=== PATIENT | female | born 1935 | race Caucasian/White ===

== ENCOUNTER 2017-02-08 11:10 | Inpatient (IN) ==
[2017-02-08] MEDS ORDERED: 0.9 % Sodium Chloride 1,000 ML IVC ONE (11:26)
--- NOTE | 2017-02-08 11:38 | Emergency Department Note ---
Disposition Clinical Impression: Altered mental status Disposition: Admitted As Inpatient Condition: Good Time of Disposition: 15:23 Altered Mental Status HPI - General Chief Complaint: ED General Medical Stated Complaint: non-verbal, laying in urine Time Seen by Provider: 02/08/17 11:42 Source: EMS Mode of arrival: EMS Limitations: altered mental status, age Nursing Notes Reviewed: Yes Vital Signs Reviewed: Yes - History of Present Illness HPI Narrative: Patient found by her caregiver today at home laying in a pool of urine it has been unclear how long she has been there when the last time she was seen patient is nonverbal and unable to provide us with any history MD complaint: altered mental status Onset (ago): unknown Pain Severity: unable Consistency of Symptoms: unknown Associated symptoms: Reports: other (unable to provide) - Related Data Home Medications Medication Instructions Recorded Confirmed Amlodipine [Norvasc] 5 mg PO DAILY 08/16/15 08/16/15 Celecoxib [Celebrex] 100 mg PO DAILY 08/16/15 08/16/15 Cholecalciferol (Vitamin D3) 1,000 unit PO BID 08/16/15 08/16/15 [Vitamin D] Cyclobenzaprine [Flexeril] 10 mg PO TID 08/16/15 08/16/15 Duloxetine [Cymbalta] 30 mg PO DAILY 08/16/15 08/16/15 Fluticasone Propionate Nasal 1 spray NS DAILY PRN 08/16/15 08/16/15 [Flonase] Lansoprazole [Prevacid] 30 mg PO DAILY 08/16/15 08/16/15 Levothyroxine [Synthroid] 112 mcg PO 0630 08/16/15 08/16/15 Lidocaine Patch [Lidoderm 5% patch] 1 each TP DAILY 08/16/15 08/16/15 Lisinopril [Zestril] 2.5 mg PO DAILY 08/16/15 08/16/15 Paroxetine [Paxil] 10 mg PO DAILY 08/16/15 08/16/15 Pregabalin [Lyrica] 150 mg PO BID 08/16/15 08/16/15 Tolterodine Tartrate [Detrol] 1 mg PO BID 08/16/15 08/16/15 Previous Rx's Medication Instructions Recorded Hydrocodone/Acetaminophen [[place] 1 tab PO Q6H #30 tablet 08/19/15 10-325 Tablet] Allergies Allergy/AdvReac Type Severity Reaction Status Date / Time Iodinated Contrast Media - Allergy See Verified 02/08/17 12:33 Oral and Comments Limitations: ROS unobtainable due to patients medical condition Past Medical History - Past Medical History Source: old records reviewed Medical history: Reports: hypertension Surgical history: Reports: hysterectomy, other Psychiatric history: Reports: no psych history - Social History Smoking Status: Current every day smoker Smokeless Tobacco Status: No Alcohol use: Reports: none Drug use: Reports: none Physical Exam - General Limitations: altered mental status General appearance: in no apparent distress, other (nonverbal) - Head Head exam: atraumatic, normocephalic, normal inspection - Eye Eye exam: Present: normal appearance, PERRL, EOMI - ENT ENT exam: normal exam, normal oropharynx, mucous membranes moist, normal external ear exam - Neck Neck exam: Present: normal inspection, full ROM, trachea midline - Chest Chest inspection: Present: normal inspection, symmetric chest wall rise, other ( occasional cough) - Respiratory Respiratory exam: Present: normal lung sounds bilaterally - Cardiovascular Cardiovascular exam: Present: regular rate, normal rhythm, normal heart sounds - Abdominal Exam Abdominal exam: Present: soft, Non-Tender, normal bowel sounds. Absent: mass, pulsatile mass - Extremities Exam Extremities exam: Present: normal inspection, full ROM, normal capillary refill. Absent: tenderness, joint swelling - Expanded Lower Extremity Exam Neurovascular/Tendon exam: Present: normal capillary refill, normal fine/light touch Gait: not tested/not observed - Back Exam Back exam: Present: normal inspection, full ROM. Absent: muscle spasm - Neurological Exam Neurological exam: Present: alert, CN II-XII intact - Psychiatric Psychiatric exam: Present: other (non verbal) - Skin Skin exam: Present: warm, dry, intact Course Course Narrative: Patient seen and examined multifocal workup done for etiology of altered mental status patient is been agitated but no nuchal meningeal signs noted no gross evidence of any focal weakness other than being nonverbal patient admitted Vital Signs Temperature 98.2 F 02/08/17 11:42 Pulse Rate 82 02/08/17 11:42 Respiratory Rate 18 02/08/17 11:42 Blood Pressure 176/126 02/08/17 11:42 O2 Sat by Pulse Oximetry 89 02/08/17 11:42 Temperature 98.2 F 02/08/17 14:29 Pulse Rate 88 02/08/17 14:29 Respiratory Rate 18 02/08/17 14:29 Blood Pressure 143/59 02/08/17 14:29 O2 Sat by Pulse Oximetry 98 02/08/17 14:29 Oxygen Delivery Oxygen Delivery Nasal Cannula Altered Mental Status - Differential Diagnosis Likely: dementia, hypoglycemia, hyponatremia, psychiatric disease - Medical Records Medical records reviewed: Yes I reviewed the patient's medical records. - Lab Data Lab results reviewed: Yes I reviewed the patient's lab results. Result diagrams: 02/08/17 11:40 02/08/17 11:40 Lab Results 02/08/17 02/08/17 02/08/17 Range/Units 11:40 11:40 11:40 WBC 24.9 H (4.3-11.1) K/mcL RBC 4.12 (3.82-4.97) M/mcL Hgb 12.6 (11.5-15.4) g/dL Hct 36.4 (35.3-44.9) % MCV 88.3 (83.0-100.0) fL MCH 30.6 (28.0-33.3) pg MCHC 34.6 (31.6-35.5) g/dL RDW 14.0 (11.5-14.5) % Plt Count 445 H (140-400) K/mcL MPV 11.0 (9.4-12.4) fL Immature Gran % 0.7 (0-4) % Seg Neutrophils % 77.6 % Lymphocytes % 16.5 % Monocytes % 4.6 % Eosinophils % 0.4 % Basophils % 0.2 % Neutrophils # 19.3 H (1.6-8.9) K/mcL Lymphocytes # 4.1 (0.6-4.6) K/mcL Monocytes # 1.2 (0.0-1.3) K/mcL Eosinophils # 0.1 (0.0-0.6) K/mcL Basophils # 0.1 (0.0-0.2) K/mcL PT (9.4-12.1) Seconds INR APTT 32.6 (26.0-36.0) Seconds VBG Lactic Acid (0.5-2.2) mmol/L Sodium 129 L (136-145) mEq/L Potassium 4.0 (3.5-4.5) mEq/L Chloride 91 L (98-109) mEq/L Carbon Dioxide 24 (19-29) mEq/L BUN 7 (7-20) mg/dL Creatinine 0.84 (0.57-1.11) mg/dL Est GFR ( Amer) > 60 (> 60) Est GFR (Non-Af Amer) > 60 (> 60) BUN/Creatinine Ratio 8 (6-26) Glucose 116 H (70-99) mg/dL Calculated Osmolality 267 L (280-300) Calcium 9.6 (8.6-10.8) mg/dL Total Bilirubin 0.7 (0.2-1.2) mg/dL AST 14 (5-34) Units/L ALT 9 (0-55) Units/L Alkaline Phosphatase 151 H (38-126) Units/L Ammonia (18-72) mcmol/L Troponin I (0-0.03) ng/mL B-Natriuretic Peptide (0-100) pg/mL Serum Total Protein 7.8 (6.0-8.3) g/dL Albumin 4.3 (3.5-5.0) g/dL Globulin 3.5 (2.4-3.5) g/dL Albumin/Globulin Ratio 1.2 (1.1-2.2) Urine Color (Yellow) Urine Clarity (Clear) Urine pH (5.0-8.0) pH Units Ur Specific [place] (1.010-1.025) Urine Protein (Neg-Trace) mg/dL Urine Glucose (UA) (Normal) mg/dL Urine Ketones (Negative) mg/dL Urine Blood (Negative) Urine Nitrite (Negative) Urine Bilirubin (Negative) Urine Urobilinogen (Normal) mg/dL Ur Leukocyte Esterase (Negative) Urine Microscopic RBC (0-3) per hpf Urine Microscopic WBC (0-3) per hpf Ur Squamous Epith Cells (None-Few) per lpf Ur Renal Epithelial Cell (None-Few) per hpf Amorphous Sediment (Few) Hyaline Casts (None-Few) per lpf Ur Culture Indicated? (NO) Salicylates (15-30) mg/dL Urine Opiates Screen (Nmlraq=887) ng/mL Ur Oxycodone Screen (Cutoff= 100) ng/mL Acetaminophen < 3.0 L (10-30) mcg/mL Ur Barbiturates Screen (Padxkq=584) ng/mL Ur Phencyclidine Scrn (Cutoff=25) ng/mL Ur Amphetamines Screen (Ztbqly=1196) ng/mL U Benzodiazepines Scrn (Djsrtn=949) ng/mL Urine Cocaine Screen (Cutoff= 300) ng/mL U Marijuana (THC) Screen (Cutoff = 50) ng/mL Ethyl Alcohol (0-10) mg/dL 02/08/17 02/08/17 02/08/17 Range/Units 11:40 11:40 11:40 WBC (4.3-11.1) K/mcL RBC (3.82-4.97) M/mcL Hgb (11.5-15.4) g/dL Hct (35.3-44.9) % MCV (83.0-100.0) fL MCH (28.0-33.3) pg MCHC (31.6-35.5) g/dL RDW (11.5-14.5) % Plt Count (140-400) K/mcL MPV (9.4-12.4) fL Immature Gran % (0-4) % Seg Neutrophils % % Lymphocytes % % Monocytes % % Eosinophils % % Basophils % % Neutrophils # (1.6-8.9) K/mcL Lymphocytes # (0.6-4.6) K/mcL Monocytes # (0.0-1.3) K/mcL Eosinophils # (0.0-0.6) K/mcL Basophils # (0.0-0.2) K/mcL PT 11.7 (9.4-12.1) Seconds INR 1.1 APTT (26.0-36.0) Seconds VBG Lactic Acid (0.5-2.2) mmol/L Sodium (136-145) mEq/L Potassium (3.5-4.5) mEq/L Chloride (98-109) mEq/L Carbon Dioxide (19-29) mEq/L BUN (7-20) mg/dL Creatinine (0.57-1.11) mg/dL Est GFR ( Amer) (> 60) Est GFR (Non-Af Amer) (> 60) BUN/Creatinine Ratio (6-26) Glucose (70-99) mg/dL Calculated Osmolality (280-300) Calcium (8.6-10.8) mg/dL Total Bilirubin (0.2-1.2) mg/dL AST (5-34) Units/L ALT (0-55) Units/L Alkaline Phosphatase (38-126) Units/L Ammonia 16 L (18-72) mcmol/L Troponin I (0-0.03) ng/mL B-Natriuretic Peptide 70 (0-100) pg/mL Serum Total Protein (6.0-8.3) g/dL Albumin (3.5-5.0) g/dL Globulin (2.4-3.5) g/dL Albumin/Globulin Ratio (1.1-2.2) Urine Color (Yellow) Urine Clarity (Clear) Urine pH (5.0-8.0) pH Units Ur Specific [place] (1.010-1.025) Urine Protein (Neg-Trace) mg/dL Urine Glucose (UA) (Normal) mg/dL Urine Ketones (Negative) mg/dL Urine Blood (Negative) Urine Nitrite (Negative) Urine Bilirubin (Negative) Urine Urobilinogen (Normal) mg/dL Ur Leukocyte Esterase (Negative) Urine Microscopic RBC (0-3) per hpf Urine Microscopic WBC (0-3) per hpf Ur Squamous Epith Cells (None-Few) per lpf Ur Renal Epithelial Cell (None-Few) per hpf Amorphous Sediment (Few) Hyaline Casts (None-Few) per lpf Ur Culture Indicated? (NO) Salicylates (15-30) mg/dL Urine Opiates Screen (Lrqeoa=998) ng/mL Ur Oxycodone Screen (Cutoff= 100) ng/mL Acetaminophen (10-30) mcg/mL Ur Barbiturates Screen (Uxuatv=150) ng/mL Ur Phencyclidine Scrn (Cutoff=25) ng/mL Ur Amphetamines Screen (Upivvr=8990) ng/mL U Benzodiazepines Scrn (Ijzvkg=743) ng/mL Urine Cocaine Screen (Cutoff= 300) ng/mL U Marijuana (THC) Screen (Cutoff = 50) ng/mL Ethyl Alcohol (0-10) mg/dL 02/08/17 02/08/17 02/08/17 Range/Units 11:40 11:40 11:40 WBC (4.3-11.1) K/mcL RBC (3.82-4.97) M/mcL Hgb (11.5-15.4) g/dL Hct (35.3-44.9) % MCV (83.0-100.0) fL MCH (28.0-33.3) pg MCHC (31.6-35.5) g/dL RDW (11.5-14.5) % Plt Count (140-400) K/mcL MPV (9.4-12.4) fL Immature Gran % (0-4) % Seg Neutrophils % % Lymphocytes % % Monocytes % % Eosinophils % % Basophils % % Neutrophils # (1.6-8.9) K/mcL Lymphocytes # (0.6-4.6) K/mcL Monocytes # (0.0-1.3) K/mcL Eosinophils # (0.0-0.6) K/mcL Basophils # (0.0-0.2) K/mcL PT (9.4-12.1) Seconds INR APTT (26.0-36.0) Seconds VBG Lactic Acid 2.0 (0.5-2.2) mmol/L Sodium (136-145) mEq/L Potassium (3.5-4.5) mEq/L Chloride (98-109) mEq/L Carbon Dioxide (19-29) mEq/L BUN (7-20) mg/dL Creatinine (0.57-1.11) mg/dL Est GFR ( Amer) (> 60) Est GFR (Non-Af Amer) (> 60) BUN/Creatinine Ratio (6-26) Glucose (70-99) mg/dL Calculated Osmolality (280-300) Calcium (8.6-10.8) mg/dL Total Bilirubin (0.2-1.2) mg/dL AST (5-34) Units/L ALT (0-55) Units/L Alkaline Phosphatase (38-126) Units/L Ammonia (18-72) mcmol/L Troponin I 0.01 (0-0.03) ng/mL B-Natriuretic Peptide (0-100) pg/mL Serum Total Protein (6.0-8.3) g/dL Albumin (3.5-5.0) g/dL Globulin (2.4-3.5) g/dL Albumin/Globulin Ratio (1.1-2.2) Urine Color (Yellow) Urine Clarity (Clear) Urine pH (5.0-8.0) pH Units Ur Specific [place] (1.010-1.025) Urine Protein (Neg-Trace) mg/dL Urine Glucose (UA) (Normal) mg/dL Urine Ketones (Negative) mg/dL Urine Blood (Negative) Urine Nitrite (Negative) Urine Bilirubin (Negative) Urine Urobilinogen (Normal) mg/dL Ur Leukocyte Esterase (Negative) Urine Microscopic RBC (0-3) per hpf Urine Microscopic WBC (0-3) per hpf Ur Squamous Epith Cells (None-Few) per lpf Ur Renal Epithelial Cell (None-Few) per hpf Amorphous Sediment (Few) Hyaline Casts (None-Few) per lpf Ur Culture Indicated? (NO) Salicylates < 5.0 L (15-30) mg/dL Urine Opiates Screen (Eomwhr=095) ng/mL Ur Oxycodone Screen (Cutoff= 100) ng/mL Acetaminophen (10-30) mcg/mL Ur Barbiturates Screen (Xkfybn=919) ng/mL Ur Phencyclidine Scrn (Cutoff=25) ng/mL Ur Amphetamines Screen (Bafipj=9399) ng/mL U Benzodiazepines Scrn (Riytvt=280) ng/mL Urine Cocaine Screen (Cutoff= 300) ng/mL U Marijuana (THC) Screen (Cutoff = 50) ng/mL Ethyl Alcohol < 10 (0-10) mg/dL 02/08/17 02/08/17 Range/Units 11:55 11:55 WBC (4.3-11.1) K/mcL RBC (3.82-4.97) M/mcL Hgb (11.5-15.4) g/dL Hct (35.3-44.9) % MCV (83.0-100.0) fL MCH (28.0-33.3) pg MCHC (31.6-35.5) g/dL RDW (11.5-14.5) % Plt Count (140-400) K/mcL MPV (9.4-12.4) fL Immature Gran % (0-4) % Seg Neutrophils % % Lymphocytes % % Monocytes % % Eosinophils % % Basophils % % Neutrophils # (1.6-8.9) K/mcL Lymphocytes # (0.6-4.6) K/mcL Monocytes # (0.0-1.3) K/mcL Eosinophils # (0.0-0.6) K/mcL Basophils # (0.0-0.2) K/mcL PT (9.4-12.1) Seconds INR APTT (26.0-36.0) Seconds VBG Lactic Acid (0.5-2.2) mmol/L Sodium (136-145) mEq/L Potassium (3.5-4.5) mEq/L Chloride (98-109) mEq/L Carbon Dioxide (19-29) mEq/L BUN (7-20) mg/dL Creatinine (0.57-1.11) mg/dL Est GFR ( Amer) (> 60) Est GFR (Non-Af Amer) (> 60) BUN/Creatinine Ratio (6-26) Glucose (70-99) mg/dL Calculated Osmolality (280-300) Calcium (8.6-10.8) mg/dL Total Bilirubin (0.2-1.2) mg/dL AST (5-34) Units/L ALT (0-55) Units/L Alkaline Phosphatase (38-126) Units/L Ammonia (18-72) mcmol/L Troponin I (0-0.03) ng/mL B-Natriuretic Peptide (0-100) pg/mL Serum Total Protein (6.0-8.3) g/dL Albumin (3.5-5.0) g/dL Globulin (2.4-3.5) g/dL Albumin/Globulin Ratio (1.1-2.2) Urine Color Yellow (Yellow) Urine Clarity Clear (Clear) Urine pH 8.5 H (5.0-8.0) pH Units Ur Specific [place] 1.020 (1.010-1.025) Urine Protein 30 H (Neg-Trace) mg/dL Urine Glucose (UA) Normal (Normal) mg/dL Urine Ketones Negative (Negative) mg/dL Urine Blood Trace-lysed H (Negative) Urine Nitrite Negative (Negative) Urine Bilirubin Negative (Negative) Urine Urobilinogen Normal (Normal) mg/dL Ur Leukocyte Esterase Negative (Negative) Urine Microscopic RBC 0-3 (0-3) per hpf Urine Microscopic WBC 0-3 (0-3) per hpf Ur Squamous Epith Cells Few (None-Few) per lpf Ur Renal Epithelial Cell Many H (None-Few) per hpf Amorphous Sediment Many H (Few) Hyaline Casts Few (None-Few) per lpf Ur Culture Indicated? NO (NO) Salicylates (15-30) mg/dL Urine Opiates Screen Positive H (Gywjyv=387) ng/mL Ur Oxycodone Screen Negative (Cutoff= 100) ng/mL Acetaminophen (10-30) mcg/mL Ur Barbiturates Screen Negative (Bkkqjp=150) ng/mL Ur Phencyclidine Scrn Negative (Cutoff=25) ng/mL Ur Amphetamines Screen Negative (Nfytzt=5231) ng/mL U Benzodiazepines Scrn Negative (Mtlyve=279) ng/mL Urine Cocaine Screen Negative (Cutoff= 300) ng/mL U Marijuana (THC) Screen Negative (Cutoff = 50) ng/mL Ethyl Alcohol (0-10) mg/dL - Radiology Data Radiology results reviewed: Yes I reviewed the patient's radiology results. ITS Impressions Chest X-Ray 02/08/17 11:24 IMPRESSION: No acute process. D/ / Mustapha Fabian MD / Mustapha Fabian MD Interpreting Provider: Mustapha Fabian MD Head CT 02/08/17 11:24 IMPRESSION: No acute intracranial abnormality. Stable generalized cerebral atrophy and periventricular white matter ischemic changes. D/ / Jose A Plasencia MD / Jose A Plasencia MD Interpreting Provider: Jose A Plasencia MD Checklist - LKW: 3-4.5 hrs Add. Contraindications Patient/family understanding: The patient/family members have been counseled and understood the risk, benefit , and alternatives of treatment. Critical Care Time Critical Care Time: Yes Total Critical Care Time: 35 Attestation: Critical care performed:35 minutes as a result patient unable to carry on conversation advices going on able to complain of any pain or discomfort there is no family with her determine when the last etiology of her known well was as result discussion with the family physician for admission transferred to [facility] for further evaluation due to the fact that cannot pinpoint the last known well time in her bed being saturated with urine is apparent that she is outside the stroke window Time is exclusive of separately billable procedures. Time includes: direct patient care, patient reassessment, coordination of patient care, interpretation of data (laboratory data, radiology data, and respiratory data), review of patient's medical records, medical consultation and documentation of patient care. Procedures included in critical care time: Procedures excluded from critical care time:
[2017-02-08 11:59] LABS: Basophils # 0.1 K/mcL (0.0-0.2); Basophils % 0.2 %; Eosinophils # 0.1 K/mcL (0.0-0.6); Eosinophils % 0.4 %; Hematocrit 36.4 % (35.3-44.9); Hemoglobin 12.6 g/dL (11.5-15.4); Immature Granulocytes % 0.7 % (0-4); Lymphocytes # 4.1 K/mcL (0.6-4.6); Lymphocytes % 16.5 %; Mean Corpuscular HGB Conc 34.6 g/dL (31.6-35.5); Mean Corpuscular Hemoglobin 30.6 pg (28.0-33.3); Mean Corpuscular Volume 88.3 fL (83.0-100.0); Monocytes % 4.6 %; Neutrophils # 19.3 K/mcL (1.6-8.9); Platelet Count 445 K/mcL (140-400); Red Blood Count 4.12 M/mcL (3.82-4.97); Segmented Neutrophils % 77.6 %
[2017-02-08 12:02] LABS: Bilirubin,Urine Negative (Negative); Blood,Urine Trace-lysed (Negative); Clarity,Urine Clear (Clear); Color,Urine Yellow (Yellow); Glucose,Urine (UA) Normal (Normal); Ketones,Urine Negative (Negative); Leukocyte Esterase,Urine Negative (Negative); Nitrite,Urine Negative (Negative); PH,Urine 8.5 pH Units (5.0-8.0); Protein,Urine 30 mg/dL (Neg-Trace); Urobilinogen,Urine Normal (Normal)
[2017-02-08 12:03] LABS: Monocytes # 1.2 K/mcL (0.0-1.3)
[2017-02-08 12:10] LABS: INR 1.1; Prothrombin Time 11.7 Seconds (9.4-12.1)
[2017-02-08 12:15] LABS: Alanine Aminotransferase 9 Units/L (0-55); Albumin 4.3 g/dL (3.5-5.0); Albumin/Globulin Ratio 1.2 (1.1-2.2); Alkaline Phosphatase 151 Units/L (38-126); Aspartate Amino Transferase 14 Units/L (5-34); BUN/Creatinine Ratio 8 (6-26); Bilirubin,Total 0.7 mg/dL (0.2-1.2); Blood Urea Nitrogen 7 mg/dL (7-20); Calcium 9.6 mg/dL (8.6-10.8); Carbon Dioxide 24 mEq/L (19-29); Chloride 91 mEq/L (98-109); Ethanol < 10 mg/dL (0-10); Globulin 3.5 g/dL (2.4-3.5); Glucose 116 mg/dL (70-99); Osmolality,Calculated 267 (280-300); Sodium 129 mEq/L (136-145); Total Protein 7.8 g/dL (6.0-8.3); eGFR For African Americans > 60 (> 60); eGFR For Non-African Americans > 60 (> 60)
[2017-02-08 12:16] LABS: Amorphous Sediment,Urine Many (Few); Hyaline Casts,Urine Few per lpf (None-Few); RBC,Urine 0-3 per hpf (0-3); Renal Epithelial Cells,Urine Many per hpf (None-Few); Squamous Epithelial Cell,Urine Few per lpf (None-Few); WBC,Urine 0-3 per hpf (0-3)
[2017-02-08 12:17] LABS: Acetaminophen < 3.0 mcg/mL (10-30); Salicylate < 5.0 mg/dL (15-30)
[2017-02-08 12:17] LABS: Amphetamine Screen,Urine Negative ng/mL (Cutoff=1000); Barbiturate Screen,Urine Negative ng/mL (Cutoff=200); Benzodiazepines Screen,Urine Negative ng/mL (Cutoff=200); Cannabinoid Screen,Urine Negative ng/mL (Cutoff = 50); Cocaine Screen,Urine Negative ng/mL (Cutoff= 300); Opiate Screen,Urine Positive ng/mL (Cutoff=300); Phencyclidine Screen,Urine Negative ng/mL (Cutoff=25)
[2017-02-08] MEDS ORDERED: CefTRIAXone 1,000 MG in D5% in Water (Mini-Bag+) 100 ML IVPB STA (14:58)
[2017-02-08] MEDS ORDERED: 0.9 % Sodium Chloride 1,000 ML IVC SCH (16:34)
[2017-02-08] MEDS ORDERED: Ondansetron 4 MG/2 ML VIAL IVP PRN (16:34)
[2017-02-08] MEDS ORDERED: Naloxone 0.4 MG/ML INJ IVP PRN (16:34)
--- NOTE | 2017-02-08 18:53 | Internal Med History&Physical ---
Date of Encounter: 02/08/17 Time of Encounter: 18:25 Assessment and Plan (1) Altered mental status Current visit: Yes Status: Acute Suspect left hemispheric infarct. CT of brain showed no IC bleed. Will order carotid Doppler studies and give oral aspirin if she is able to swallow safely. Qualifiers: Altered mental status type: unspecified Qualified Code(s): R41.82 - Altered mental status, unspecified (2) Hyponatremia Current visit: Yes Status: Acute She has been started on normal saline IV. We will monitor labs. (3) Neutrophilic leukocytosis Current visit: Yes Status: Acute No obvious etiology at this point. She was given Rocephin in emergency room. Recheck labs in a.m. (4) Hypothyroid Current visit: Yes Status: Acute TSH was elevated. Will increase Synthroid dose and she is able to swallow. Qualifiers: Hypothyroidism type: unspecified Qualified Code(s): E03.9 - Hypothyroidism , unspecified (5) Hypertension Current visit: Yes Status: Chronic We will allow permissive hypertension from auto dysregulation from possible CVA. Qualifiers: Hypertension type: essential hypertension Qualified Code(s): I10 - Essential (primary) hypertension Internal Medicine - H&P: HPI Chief complaint: Neurologic deficit, leukocytosis Admitted From: Home Plans for Post Hospital Care: Home History of present illness: Ms. Mariano is a 82 year old female who was brought to emergency room after she was found by caregiver at home lying in urine and nonverbal. It is uncertain how long she had been in that condition. She was brought to emergency room and evaluated. CT of the head showed no acute infarct. She had leukocytosis with WBC 24.9 with 77.6% segs. Sodium was low at 129. She was admitted to [facility] floor for ongoing care needs. She remains nonverbal despite having her eyes open. She was hospitalized last at [facility] August 2014 after a syncopal episode. No etiology for the syncope was discovered. Her neurologic history at that time was pertinent for denial of large distribution strokes or seizures. An MMSE exam showed scored 26/30. Past Med Surg Social Fam HX - Past Medical History Medical history: GERD, hypertension, thyroid disease Psychiatric history: no psych history - Past Surgical History Surgical History: hysterectomy, other - Social History Smoking Status: Current every day smoker Smokeless Tobacco Status: No Alcohol use: none Drug use: none Internal Medicine - H&P: Meds Amlodipine [Norvasc] 5 mg PO DAILY 08/16/15 [History] Celecoxib [Celebrex] 100 mg PO DAILY 08/16/15 [History] Cyclobenzaprine [Flexeril] 10 mg PO BID 08/16/15 [History] Duloxetine [Cymbalta] 30 mg PO DAILY 08/16/15 [History] Fluticasone Propionate Nasal [Flonase] 1 spray NS DAILY PRN 08/16/15 [History] Lansoprazole [Prevacid] 30 mg PO DAILY 08/16/15 [History] Levothyroxine [Synthroid] 112 mcg PO 0630 08/16/15 [History] Lidocaine Patch [Lidoderm 5% patch] 1 each TP BID 08/16/15 [History] Lisinopril [Zestril] 2.5 mg PO DAILY 08/16/15 [History] Paroxetine [Paxil] 10 mg PO DAILY 08/16/15 [History] Pregabalin [Lyrica] 150 mg PO BID 08/16/15 [History] Tolterodine Tartrate [Detrol] 1 mg PO BID 08/16/15 [History] Hydrocodone/Acetaminophen [[place] 10-325 Tablet] 1 tab PO Q6H #30 tablet [Rx] Baclofen [Lioresal] 10 mg PO BID 02/08/17 [History] Cholecalciferol (Vitamin D3) [Vitamin D] 5,000 unit PO BID 02/08/17 [History] Docusate [Colace] 100 mg PO DAILY PRN 02/08/17 [History] Esomeprazole Magnesium [Nexium] 40 mg PO QDPC 02/08/17 [History] Omeprazole 20 mg PO QDPC 02/08/17 [History] Solifenacin Succinate [Vesicare] 5 mg PO QDPC 02/08/17 [History] Temazepam [Restoril] 15 mg PO HS PRN 02/08/17 [History] Vitamin B Complex [Vitamin B Complex] 1 tab PO QDPC 02/08/17 [History] Allergies Iodinated Contrast Media - Oral and Allergy (Verified 02/08/17 12:33) See Comments Shock All Systems PM: A 10-system review of systems was performed and is negative for pertinent findings except as documented above in the HPI. Review of systems: Review of systems from the August 2014 H&P were reviewed and revised as below Gen.: Her weight has been stable at approximately 59 kg Cardiovascular: She has history of hypertension but no known NV heart failure angina DVT or pulmonary embolus. She thought an exercise stress test was performed approximately 2003. Respiratory: She smoked since age 7 never up to 1 pack per day. She did not wear home oxygen and she was uncertain if she had COPD on PFTs done approximately 10 years earlier. She has been diagnosed with ROBERT but could not tolerate CPAP/BiPAP mask GI: She had EGD and colonoscopy approximately July 2014 but was uncertain of the results. She had polypectomy and diverticular disease. She has history of hiatal hernia and GERD. She denied disorders of her liver gallbladder or exocrine pancreas : She has urinary incontinence but no disorder of kidney or bladder otherwise Neurologic: As per history of present illness Endocrine: she has hypothyroidism but denies diabetes or hyperlipidemia Hematology/oncology: She denies internal malignancies. She has had anemia in the past. Psychiatric: She has diagnosis of depression but no significant anxiety other mental health issues Musk skeletal: she has fibromyalgia and DJD and a diagnosis of SLE. - Constitutional Vitals: Temp Pulse Resp BP Pulse Ox 100.3 F H 85 20 147/78 96 02/08/17 15:55 02/08/17 15:55 02/08/17 15:55 02/08/17 15:55 02/08/17 15:55 Exam: Gen.: She is a well-developed lean female lying in bed who does not respond meaningfully to voice or light touch. She has her eyes open HEENT: Head is atraumatic and normocephalic. Eyes: EOMI. There is no scleral icterus. Mouth: Mucosa is not visualized because she will not open her mouth Neck: Supple and nontender. There is no thyromegaly or adenopathy noted Heart: Regular without murmurs gallops or ectopics Lungs: No wheezes or crackles are heard. Abdomen: Soft and nontender. No masses or guarding are noted. Extremities: There is no cyanosis edema or clubbing noted. Dorsalis pedis and posterior tibial pulses are trace palpable bilaterally. Neurologic: Mental status: Her eyes are open but she does not respond meaningfully to voice or light touch. Cranial nerves: She has leftward gaze deviation of her eyes. EOMI noted. 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 Motor: She has equal tone on passive range of motion of her arms and legs. She moves her right arm and leg more than the left. No further neurologic testing is attempted Skin: Warm and dry Internal Med - H&P Results - Labs CBC & Chem 7: 02/08/17 11:40 02/08/17 11:40
[2017-02-08] MEDS: 0.9 % Sodium Chloride 1,000 ML IVC SCH (19:33)
[2017-02-09] MEDS: *HR* LORazepam 2 MG/ML VIAL IVP PRN (00:16)
[2017-02-09 05:33] LABS: Basophils % 0.2 %; Eosinophils # 0.1 K/mcL (0.0-0.6); Eosinophils % 0.3 %; Hematocrit 32.6 % (35.3-44.9); Hemoglobin 11.4 g/dL (11.5-15.4); Immature Granulocytes % 0.6 % (0-4); Lymphocytes # 4.6 K/mcL (0.6-4.6); Mean Corpuscular Hemoglobin 30.5 pg (28.0-33.3); Mean Corpuscular Volume 87.2 fL (83.0-100.0); Mean Platelet Volume 11.2 fL (9.4-12.4); Monocytes # 1.3 K/mcL (0.0-1.3); Monocytes % 6.7 %; Neutrophils # 13.2 K/mcL (1.6-8.9); Platelet Count 388 K/mcL (140-400); Red Blood Count 3.74 M/mcL (3.82-4.97); Red Cell Distribution Width 13.7 % (11.5-14.5); Segmented Neutrophils % 68.2 %
[2017-02-09 05:57] LABS: BUN/Creatinine Ratio 9 (6-26); Blood Urea Nitrogen 7 mg/dL (7-20); Calcium 8.9 mg/dL (8.6-10.8); Carbon Dioxide 21 mEq/L (19-29); Chloride 92 mEq/L (98-109); Glucose 103 mg/dL (70-99); Osmolality,Calculated 260 (280-300); Potassium 3.5 mEq/L (3.5-4.5); Sodium 126 mEq/L (136-145); eGFR For African Americans > 60 (> 60); eGFR For Non-African Americans > 60 (> 60)
[2017-02-09] MEDS: *HR* Enoxaparin 40 MG/0.4 ML SYRINGE SQ SCH (06:19)
[2017-02-09] MEDS: Aspirin 325 MG TABLET PO SCH (08:49)
[2017-02-09] MEDS: 0.9 % Sodium Chloride 1,000 ML IVC SCH ×2 (13:03→21:47)
--- NOTE | 2017-02-09 17:59 | Internal Med Progress Note ---
Date of Encounter: 02/09/17 Time of Encounter: 17:50 - Assessment and plan (1) Altered mental status Current Visit: Yes Status: Acute Assessment and plan: February 09. Persistent unimproved neurologic deficit. We will order brain MRI. Continue aspirin. Await carotid Doppler. Qualifiers: Altered mental status type: unspecified Qualified Code(s): R41.82 - Altered mental status, unspecified (2) Hyponatremia Current Visit: Yes Status: Acute Assessment and plan: February 09. Sodium has decreased to 126. Continue normal saline IV. (3) Neutrophilic leukocytosis Current Visit: Yes Status: Acute Assessment and plan: February 09. Improved with WBC now 19.3 K and improved left shift. Continue Rocephin. (4) Hypothyroid Current Visit: Yes Status: Acute Assessment and plan: February 09. Continue Synthroid. Qualifiers: Hypothyroidism type: unspecified Qualified Code(s): E03.9 - Hypothyroidism , unspecified (5) Hypertension Current Visit: Yes Status: Chronic Assessment and plan: February 09. Blood pressures overall improved since yesterday but show significant fluctuation. Continue to withhold medication to allow for permissive hypertension from possible CVA with dysregulation. Qualifiers: Hypertension type: essential hypertension Qualified Code(s): I10 - Essential (primary) hypertension - Subjective Interval history: February 09. She is nonverbal - Constitutional Vitals: Temp Pulse Resp BP Pulse Ox 99.5 F 88 16 155/90 97 02/09/17 16:49 02/09/17 16:49 02/09/17 16:49 02/09/17 16:49 02/09/17 16:49 Exam: She is resting comfortably in bed. She moves her right arm much more than her left but appears sometimes to have nonpurposeful movements. She has equivocal Babinski on the left and no Babinski on the right. Heart is regular without murmurs gallops or ectopics. Lungs are clear. Arm tone is symmetric on passive range of motion. She has persistent leftward gaze deviation with right visual field deficits. I reviewed her medications and lab results. Internal Medicine: Result - Labs CBC & Chem 7: 02/09/17 04:20 02/09/17 04:20 Labs: Short CBC 02/09/17 Range/Units 04:20 WBC 19.3 H (4.3-11.1) K/mcL Hgb 11.4 L (11.5-15.4) g/dL Hct 32.6 L (35.3-44.9) % Plt Count 388 (140-400) K/mcL Neutrophils # 13.2 H (1.6-8.9) K/mcL BMP 02/09/17 04:20 Sodium 126 L Potassium 3.5 Chloride 92 L Carbon Dioxide 21 BUN 7 Creatinine 0.74 Glucose 103 H Calcium 8.9 - ABG Interpretation ABG results: PT/INR, D-dimer PT 11.7 Seconds (9.4-12.1) 02/08/17 11:40 - Impressions Impressions Hip X-Ray 02/08/17 19:37 IMPRESSION: Soft-tissue swelling with no definite fracture. D/ / Mario Malcolm MD / Mario Malcolm MD Interpreting Provider: Mario Malcolm MD Consult Discharge Plan - Plan Referrals: Ronnie Pond MD [Primary Care Provider] - 1 week
[2017-02-09] MEDS: CefTRIAXone 1,000 MG in D5% in Water (Mini-Bag+) 100 ML IVPB SCH (21:48)
[2017-02-09] MEDS: Lactobacillus 1 EACH CAP.SPRINK PO SCH (21:50)
[2017-02-10] MEDS: *HR* LORazepam 2 MG/ML VIAL IVP PRN ×2 (01:13→22:20)
[2017-02-10] MEDS: *HR* Enoxaparin 40 MG/0.4 ML SYRINGE SQ SCH ×2 (05:04→11:49)
[2017-02-10 07:26] LABS: Basophils # 0.1 K/mcL (0.0-0.2); Basophils % 0.3 %; Eosinophils # 0.1 K/mcL (0.0-0.6); Eosinophils % 0.6 %; Hematocrit 30.8 % (35.3-44.9); Hemoglobin 11.1 g/dL (11.5-15.4); Immature Granulocytes % 0.4 % (0-4); Lymphocytes # 4.7 K/mcL (0.6-4.6); Lymphocytes % 28.9 %; Mean Corpuscular Hemoglobin 30.7 pg (28.0-33.3); Mean Corpuscular Volume 85.1 fL (83.0-100.0); Mean Platelet Volume 10.9 fL (9.4-12.4); Monocytes # 1.3 K/mcL (0.0-1.3); Monocytes % 7.9 %; Platelet Count 326 K/mcL (140-400); Red Blood Count 3.62 M/mcL (3.82-4.97); Red Cell Distribution Width 13.4 % (11.5-14.5); Segmented Neutrophils % 61.9 %
[2017-02-10] MEDS: Lactobacillus 1 EACH CAP.SPRINK PO SCH ×2 (07:33→20:31)
[2017-02-10] MEDS: Aspirin 325 MG TABLET PO SCH (07:33)
[2017-02-10] MEDS: CefTRIAXone 1,000 MG in D5% in Water (Mini-Bag+) 100 ML IVPB SCH (07:33)
[2017-02-10 08:20] LABS: BUN/Creatinine Ratio 11 (6-26); Blood Urea Nitrogen 7 mg/dL (7-20); Calcium 8.1 mg/dL (8.6-10.8); Carbon Dioxide 21 mEq/L (19-29); Chloride 92 mEq/L (98-109); Glucose 99 mg/dL (70-99); Osmolality,Calculated 254 (280-300); Potassium 2.7 mEq/L (3.5-4.5); Sodium 123 mEq/L (136-145); eGFR For African Americans > 60 (> 60); eGFR For Non-African Americans > 60 (> 60)
--- NOTE | 2017-02-10 09:43 | Internal Med Progress Note ---
Date of Encounter: 02/10/17 Time of Encounter: 09:35 - Assessment and plan (1) Altered mental status Current Visit: Yes Status: Acute Assessment and plan: February 09. Persistent unimproved neurologic deficit. We will order brain MRI. Continue aspirin. Await carotid Doppler. February 10. MRI not yet scheduled. Carotid Doppler not yet done. Continue aspirin. Qualifiers: Altered mental status type: unspecified Qualified Code(s): R41.82 - Altered mental status, unspecified (2) Hyponatremia Current Visit: Yes Status: Acute Assessment and plan: February 09. Sodium has decreased to 126. Continue normal saline IV. February 10. Sodium has decreased further to 123. 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 (3) Neutrophilic leukocytosis Current Visit: Yes Status: Acute Assessment and plan: February 09. Improved with WBC now 19.3 K and improved left shift. Continue Rocephin. February 10. Improving. Continue Rocephin. (4) Hypothyroid Current Visit: Yes Status: Acute Assessment and plan: February 09. Continue Synthroid. Qualifiers: Hypothyroidism type: unspecified Qualified Code(s): E03.9 - Hypothyroidism , unspecified (5) Hypertension Current Visit: Yes Status: Chronic Assessment and plan: February 09. Blood pressures overall improved since yesterday but show significant fluctuation. Continue to withhold medication to allow for permissive hypertension from possible CVA with dysregulation. Qualifiers: Hypertension type: essential hypertension Qualified Code(s): I10 - Essential (primary) hypertension - Subjective Interval history: February 09. She is nonverbal February 10. She remains nonverbal. - Constitutional Vitals: Temp Pulse Resp BP Pulse Ox 97.9 F 85 18 149/79 98 02/10/17 00:00 02/10/17 00:00 02/10/17 00:00 02/10/17 00:00 02/10/17 00:00 Exam: She is lying quietly in bed. Her eyes do show conjugate movement to the right of midline today. Heart is regular with frequent ectopic beats. Lungs are clear anteriorly. Extremities show no edema. I reviewed her medications and lab results. Internal Medicine: Result - Labs CBC & Chem 7: 02/10/17 07:08 02/10/17 07:08 Labs: Short CBC 02/10/17 Range/Units 07:08 WBC 16.2 H (4.3-11.1) K/mcL Hgb 11.1 L (11.5-15.4) g/dL Hct 30.8 L (35.3-44.9) % Plt Count 326 (140-400) K/mcL Neutrophils # 10.0 H (1.6-8.9) K/mcL BMP 02/10/17 07:08 Sodium 123 L Potassium 2.7 L Chloride 92 L Carbon Dioxide 21 BUN 7 Creatinine 0.65 Glucose 99 Calcium 8.1 L - ABG Interpretation ABG results: PT/INR, D-dimer PT 11.7 Seconds (9.4-12.1) 02/08/17 11:40 Consult Discharge Plan - Plan Referrals: Ronnie Pond MD [Primary Care Provider] - 1 week
[2017-02-10] MEDS: 0.9 % Sodium Chloride 1,000 ML IVC SCH (11:47)
[2017-02-10] MEDS: 0.9 % Sodium Chloride w KCl 20 MEQ/1,000 ML MLS IVC SCH (11:58)
--- NOTE | 2017-02-10 17:38 | Electrocardiograph Report ---
[place] [id number] Test Date: 2017-02-08 Pat Name: Lucero Mariano Department: [id number] Room: [facility] Gender: F [employer] [place] [employer]: [id number] Requested By: Jesusita Pond Order Number: [id number] Reading MD: Elsie Cabrera Measurements Intervals [place] Rate: 84 P: 68 MD: 142 QRS: 16 QRSD: 94 T: -7 QT: 331 QTc: 371 Interpretive Statements SINUS RHYTHM NONSPECIFIC T-WAVE ABNORMALITY Electronically Signed On 02-10-2017 17:36:41 EDT by Elsie Cabrera
[2017-02-11] MEDS: 0.9 % Sodium Chloride w KCl 20 MEQ/1,000 ML MLS IVC SCH (01:11)
[2017-02-11 05:35] LABS: Basophils % 0.2 %; Eosinophils # 0.1 K/mcL (0.0-0.6); Eosinophils % 0.8 %; Hematocrit 30.8 % (35.3-44.9); Immature Granulocytes % 0.4 % (0-4); Lymphocytes # 4.1 K/mcL (0.6-4.6); Lymphocytes % 27.5 %; Mean Corpuscular HGB Conc 35.7 g/dL (31.6-35.5); Mean Corpuscular Hemoglobin 30.3 pg (28.0-33.3); Mean Corpuscular Volume 84.8 fL (83.0-100.0); Mean Platelet Volume 11.1 fL (9.4-12.4); Monocytes # 1.1 K/mcL (0.0-1.3); Monocytes % 7.3 %; Neutrophils # 9.6 K/mcL (1.6-8.9); Platelet Count 316 K/mcL (140-400); Red Blood Count 3.63 M/mcL (3.82-4.97); Red Cell Distribution Width 13.4 % (11.5-14.5); Segmented Neutrophils % 63.8 %
[2017-02-11 05:52] LABS: BUN/Creatinine Ratio 8 (6-26); Calcium 8.4 mg/dL (8.6-10.8); Carbon Dioxide 21 mEq/L (19-29); Chloride 95 mEq/L (98-109); Glucose 93 mg/dL (70-99); Magnesium 1.7 mg/dL (1.6-2.6); Osmolality,Calculated 261 (280-300); Potassium 2.9 mEq/L (3.5-4.5); Sodium 127 mEq/L (136-145); eGFR For African Americans > 60 (> 60); eGFR For Non-African Americans > 60 (> 60)
[2017-02-11 05:58] LABS: Blood Urea Nitrogen 5 mg/dL (7-20)
[2017-02-11] MEDS: *HR* Enoxaparin 40 MG/0.4 ML SYRINGE SQ SCH (06:13)
[2017-02-11] MEDS: Aspirin 81 MG TAB.CHEW PO SCH (09:45)
[2017-02-11] MEDS: Lactobacillus 1 EACH CAP.SPRINK PO SCH ×2 (09:48→19:47)
[2017-02-11] MEDS: CefTRIAXone 1,000 MG in D5% in Water (Mini-Bag+) 100 ML IVPB SCH (09:59)
--- NOTE | 2017-02-11 15:47 | Internal Med Progress Note ---
Date of Encounter: 02/11/17 Time of Encounter: 15:40 - Assessment and plan (1) Altered mental status Current Visit: Yes Status: Acute Assessment and plan: February 09. Persistent unimproved neurologic deficit. We will order brain MRI. Continue aspirin. Await carotid Doppler. February 10. MRI not yet scheduled. Carotid Doppler not yet done. Continue aspirin. February 11. MRI did not show evidence of acute infarct. 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 Carotid Doppler study not yet done. Continue aspirin. She appears to have some gradual improvement. Qualifiers: Altered mental status type: unspecified Qualified Code(s): R41.82 - Altered mental status, unspecified (2) Hyponatremia Current Visit: Yes Status: Acute Assessment and plan: February 09. Sodium has decreased to 126. Continue normal saline IV. February 10. Sodium has decreased further to 123. 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 February 11. Sodium improved to 127. Continue present management. Recheck labs in a.m. (3) Neutrophilic leukocytosis Current Visit: Yes Status: Acute Assessment and plan: February 09. Improved with WBC now 19.3 K and improved left shift. Continue Rocephin. February 10. Improving. Continue Rocephin. February 11. WBC improved to 15.0 K with 63.8% segs. Continue Rocephin. (4) Hypothyroid Current Visit: Yes Status: Acute Assessment and plan: February 09. Continue Synthroid. Qualifiers: Hypothyroidism type: unspecified Qualified Code(s): E03.9 - Hypothyroidism , unspecified (5) Hypertension Current Visit: Yes Status: Chronic Assessment and plan: February 09. Blood pressures overall improved since yesterday but show significant fluctuation. Continue to withhold medication to allow for permissive hypertension from possible CVA with dysregulation. February 11. Will restart lisinopril at low dose. Qualifiers: Hypertension type: essential hypertension Qualified Code(s): I10 - Essential (primary) hypertension - Subjective Interval history: February 09. She is nonverbal February 10. She remains nonverbal. February 11. She remains nonverbal. - Constitutional Vitals: Temp Pulse Resp BP Pulse Ox 99.3 F 79 16 188/83 99 02/11/17 15:03 02/11/17 15:03 02/11/17 15:03 02/11/17 15:03 02/11/17 15:03 Exam: She is resting comfortably in bed and seems to recognize I am examining her. She does not follow commands or attempt to speak. She does show full EOMI. She is not show evidence of hemianopsia at the present time. I reviewed her MRI and swallowing therapy evaluations. I reviewed her labs, medications and vital signs. Internal Medicine: Result - Labs CBC & Chem 7: 02/11/17 04:45 02/11/17 04:45 Labs: Short CBC 02/11/17 Range/Units 04:45 WBC 15.0 H (4.3-11.1) K/mcL Hgb 11.0 L (11.5-15.4) g/dL Hct 30.8 L (35.3-44.9) % Plt Count 316 (140-400) K/mcL Neutrophils # 9.6 H (1.6-8.9) K/mcL BMP 02/11/17 04:45 Sodium 127 L Potassium 2.9 L Chloride 95 L Carbon Dioxide 21 BUN 5 L Creatinine 0.63 Glucose 93 Calcium 8.4 L - ABG Interpretation ABG results: PT/INR, D-dimer PT 11.7 Seconds (9.4-12.1) 02/08/17 11:40 - Impressions Impressions Videofluoroscopic Swallow 02/11/17 00:00 IMPRESSION: Transient penetration with purees. Aspiration with nectar thick liquid. Please see separate speech pathology report for full discussion of findings and recommendations. D/ / Ryne Grant MD / Ryne Grant MD Interpreting Provider: Ryne Grant MD Brain MRI 02/11/17 12:30 IMPRESSION: 1. No acute intracranial abnormality. No acute infarct. 2. Extensive global parenchymal volume loss with chronic microvascular ischemic change. 3. 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 4. Right mastoid effusion. D/ / Toni Massey MD / Toni Massey MD Interpreting Provider: Toni Massey MD Consult Discharge Plan - Plan Referrals: Ronnie Pond MD [Primary Care Provider] - 1 week
[2017-02-11] MEDS: Potassium Chloride Elixir 20 MEQ/15 ML UDC PO SCH (19:15)
[2017-02-12] MEDS: 0.9 % Sodium Chloride w KCl 20 MEQ/1,000 ML MLS IVC SCH ×3 (00:03→15:13)
[2017-02-12] MEDS: *HR* LORazepam 2 MG/ML VIAL IVP PRN (00:48)
[2017-02-12 05:05] LABS: Basophils % 0.3 %; Eosinophils # 0.2 K/mcL (0.0-0.6); Hematocrit 32.1 % (35.3-44.9); Hemoglobin 11.6 g/dL (11.5-15.4); Immature Granulocytes % 0.3 % (0-4); Lymphocytes # 3.9 K/mcL (0.6-4.6); Mean Corpuscular HGB Conc 36.1 g/dL (31.6-35.5); Mean Corpuscular Hemoglobin 30.9 pg (28.0-33.3); Mean Corpuscular Volume 85.4 fL (83.0-100.0); Monocytes % 5.4 %; Neutrophils # 10.7 K/mcL (1.6-8.9); Platelet Count 348 K/mcL (140-400); Red Blood Count 3.76 M/mcL (3.82-4.97); Red Cell Distribution Width 13.8 % (11.5-14.5)
[2017-02-12 05:06] LABS: Basophils # 0.1 K/mcL (0.0-0.2); Monocytes # 0.9 K/mcL (0.0-1.3)
[2017-02-12 05:26] LABS: BUN/Creatinine Ratio 8 (6-26); Calcium 8.8 mg/dL (8.6-10.8); Carbon Dioxide 21 mEq/L (19-29); Chloride 96 mEq/L (98-109); Glucose 86 mg/dL (70-99); Osmolality,Calculated 265 (280-300); Potassium 3.2 mEq/L (3.5-4.5); Sodium 129 mEq/L (136-145); eGFR For African Americans > 60 (> 60); eGFR For Non-African Americans > 60 (> 60)
[2017-02-12 05:32] LABS: Blood Urea Nitrogen 5 mg/dL (7-20)
[2017-02-12] MEDS: *HR* Enoxaparin 40 MG/0.4 ML SYRINGE SQ SCH (05:35)
[2017-02-12] MEDS: Lactobacillus 1 EACH CAP.SPRINK PO SCH (08:57)
[2017-02-12] MEDS: Potassium Chloride Elixir 20 MEQ/15 ML UDC PO SCH (08:57)
[2017-02-12] MEDS: CefTRIAXone 1,000 MG in D5% in Water (Mini-Bag+) 100 ML IVPB SCH (08:58)
[2017-02-12] MEDS: Aspirin 81 MG TAB.CHEW PO SCH (09:00)
[2017-02-12 10:07] VITALS: BP 153/101
--- NOTE | 2017-02-12 10:36 | Discharge Summary ---
Date of Encounter: 02/12/17 Time of Encounter: 10:00 - Discharge Diagnosis (1) Altered mental status Priority: Primary Status: Acute Qualifiers: Altered mental status type: unspecified Qualified Code(s): R41.82 - Altered mental status, unspecified (2) Hyponatremia Priority: Secondary Status: Acute (3) Neutrophilic leukocytosis Priority: Secondary Status: Acute (4) Hypothyroid Priority: Secondary Status: Acute Qualifiers: Hypothyroidism type: unspecified Qualified Code(s): E03.9 - Hypothyroidism , unspecified (5) Hypertension Priority: Secondary Status: Chronic Qualifiers: Hypertension type: essential hypertension Qualified Code(s): I10 - Essential (primary) hypertension - Discharge Medications Prescriptions: Cefuroxime PO [Ceftin] 500 mg PO Q12HR 3 Days Doxycycline 100 mg PO BID 3 Days Home Medications: Amlodipine [Norvasc] 5 mg PO DAILY 08/16/15 [History] Lidocaine Patch [Lidoderm 5% patch] 1 each TP BID 08/16/15 [History] Docusate [Colace] 100 mg PO DAILY PRN 02/08/17 [History] Aspirin 81 mg PO DAILY tab.chew 02/12/17 [Rx] Cefuroxime PO [Ceftin] 500 mg PO Q12HR 3 Days 02/12/17 [Rx] Doxycycline 100 mg PO BID 3 Days 02/12/17 [Rx] Enoxaparin [Lovenox] 40 mg SQ 0600 syringe 02/12/17 [Rx] Lactobacillus [Culturelle] 1 each PO BID 3 Days 02/12/17 [Rx] Levothyroxine [Synthroid] 150 mcg PO 0630 tablet 02/12/17 [Rx] Lisinopril [Zestril] 10 mg PO DAILY tablet 02/12/17 [Rx] Potassium Chloride 10 meq PO BIDWM tab.er.prt 02/12/17 [Rx] Allergies/Adverse Reactions: Allergies Iodinated Contrast Media - Oral and Allergy (Verified 02/08/17 12:33) See Comments Shock Procedures/tests Complete & Pending: Procedures Performed prior 72 hours Category Date Time Status MR head/brain wo con [MR] Routine MRI 02/11/17 12:30 Completed Date of admission: 02/09/17 18:06 Primary care physician: Ronnie Pond MD - Patient Status Disposition: Transfer Hospital Swing Bed Condition: Good Functional capacity at discharge: uses cane/walker Overall status at discharge: patient is progressing back to baseline - Discharge Instructions - Diet and Activity Activity: as per physical therapy Diet: other (Pureed diet with honey thick liquids. Advance as tolerated.) Hospital course: Ms. Mariano is a 82 year old female who was brought to emergency room after she was found by caregiver at home lying in urine and nonverbal. It is uncertain how long she had been in that condition. She was brought to emergency room and evaluated. CT of the head showed no acute infarct. She had leukocytosis with WBC 24.9 with 77.6% segs. Sodium was low at 129. She was admitted to [facility] for ongoing care needs. Initial orders were written by the emergency room physician. I saw her on February 08 and performed a history and physical. She did not have any significant improvement the first 48 hours of hospital stay. An MRI of the brain was ordered and showed no acute infarct present. There was an old pontine infarct seen. She was started empirically on aspirin 81 mg daily. Carotid Doppler studies were ordered but were not performed by the time of discharge into swing bed. The etiology of her presenting mental status change was not obvious but I suspect it was cerebral hypoperfusion with superimposed infection. Examination on February 12 showed significant improvement and she was able to speak and interact appropriately. I felt she would benefit from ongoing rehabilitation therapy in swing bed. She was given IV normal saline on admission. Her sodium level declined to 123 on February 10 but had risen to 129 on the day of discharge into swing bed. She was given supplemental potassium for hypokalemia. She was started on empiric antibiotics for eukocytosis with neutrophilia. WBC had improved to 15.7 on the day of discharge to swing bed with 68% segs present. The etiology of her leukocytosis was not determined with certainty. She will be discharged today to swing bed and will continue with therapy interventions, IV fluids, and oral antibiotics with probiotics. - Time Spent with Patient Total time spent providing and/or coordinating discharge services: - Constitutional Vitals: Temp Pulse Resp BP Pulse Ox 98.1 F 81 16 153/101 95 02/12/17 10:01 02/12/17 10:02/12/17 10:01 02/12/17 10:02/12/17 10:01
== END 2017-02-12 16:33 | disposition other institution (70) | DRG 948 ==
LOC: EMEROOPIK 11:10 → INPPIK 11:10
PROVIDERS: ADMIT Internal Medicine; ATTEND Internal Medicine

== ENCOUNTER 2017-02-12 11:01 | Inpatient (IN) ==
[2017-02-12] MEDS ORDERED: Cefuroxime PO 250 MG TABLET PO SCH (18:00)
[2017-02-12] MEDS: 0.9 % Sodium Chloride w KCl 20 MEQ/1,000 ML MLS IVC SCH (18:11)
[2017-02-12] MEDS: Doxycycline 100 MG CAPSULE PO SCH (22:00)
[2017-02-12] MEDS: Lactobacillus 1 EACH CAP.SPRINK PO SCH (22:00)
[2017-02-13] MEDS: *HR* LORazepam 1 MG TABLET PO PRN ×2 (02:40→14:40)
[2017-02-13] MEDS: 0.9 % Sodium Chloride w KCl 20 MEQ/1,000 ML MLS IVC SCH (05:38)
[2017-02-13 05:43] LABS: eGFR For African Americans > 60 (> 60); eGFR For Non-African Americans > 60 (> 60)
[2017-02-13] MEDS ORDERED: Cefuroxime PO 250 MG TABLET PO SCH (06:00)
[2017-02-13 07:54] LABS: Basophils # 0.1 K/mcL (0.0-0.2); Basophils % 0.3 %; Eosinophils # 0.2 K/mcL (0.0-0.6); Eosinophils % 0.8 %; Hematocrit 35.6 % (35.3-44.9); Hemoglobin 12.5 g/dL (11.5-15.4); Immature Granulocytes % 0.6 % (0-4); Lymphocytes # 4.2 K/mcL (0.6-4.6); Mean Corpuscular HGB Conc 35.1 g/dL (31.6-35.5); Mean Corpuscular Hemoglobin 30.9 pg (28.0-33.3); Mean Corpuscular Volume 87.9 fL (83.0-100.0); Monocytes # 1.2 K/mcL (0.0-1.3); Monocytes % 6.2 %; Neutrophils # 13.3 K/mcL (1.6-8.9); Platelet Count 356 K/mcL (140-400); Red Blood Count 4.05 M/mcL (3.82-4.97); Red Cell Distribution Width 13.9 % (11.5-14.5); Segmented Neutrophils % 70.1 %
[2017-02-13 07:56] LABS: INR 1.1; Prothrombin Time 12.4 Seconds (9.4-12.1)
[2017-02-13 08:07] LABS: Activated Partial Thrombo Time 30.4 Seconds (26.0-36.0)
[2017-02-13] MEDS: amLODIPine 5 MG TABLET PO SCH (08:53)
[2017-02-13] MEDS: Lactobacillus 1 EACH CAP.SPRINK PO SCH (08:53)
[2017-02-13] MEDS: Aspirin 81 MG TAB.CHEW PO SCH (08:53)
[2017-02-13] MEDS: Doxycycline 100 MG CAPSULE PO SCH (08:54)
--- NOTE | 2017-02-13 10:31 | Internal Med Progress Note ---
Date of Encounter: 02/13/17 Time of Encounter: 10:20 - Assessment and plan (1) Altered mental status Current Visit: No Status: Acute Assessment and plan: February 13. Improved. Continue present management. Qualifiers: Altered mental status type: unspecified Qualified Code(s): R41.82 - Altered mental status, unspecified (2) Hyponatremia Current Visit: No Status: Acute Assessment and plan: February 13. We will recheck labs in a.m. (3) Neutrophilic leukocytosis Current Visit: No Status: Acute Assessment and plan: February 13. We will discontinue antibiotics. Etiology of the leukocytosis is not known. (4) Hypothyroid Current Visit: No Status: Acute Assessment and plan: February 13. TSH was 32.916 on 02/08/2017. Continue Synthroid. Qualifiers: Hypothyroidism type: unspecified Qualified Code(s): E03.9 - Hypothyroidism , unspecified (5) Hypertension Current Visit: No Status: Chronic Assessment and plan: February 13. Blood pressure suboptimally controlled. Will increase lisinopril. Qualifiers: Hypertension type: essential hypertension Qualified Code(s): I10 - Essential (primary) hypertension - Subjective Interval history: February 13. She was hospitalized in acute care February 08- February 12 after presenting with altered mental status. She remained nonverbal until February 11 when she had marked improvement and was able to communicate appropriately. MRI brain showed no infarct. She had leukocytosis of uncertain etiology. She was treated with antibiotics which were continued into swing bed orders. She has no new complaints today. - Constitutional Vitals: Temp Pulse Resp BP Pulse Ox 98.1 F 76 16 163/80 98 02/13/17 07:01 02/13/17 07:01 02/13/17 07:01 02/13/17 07:01 02/13/17 07:01 Exam: Her affect is cheerful. She answers questions appropriately. Extremities show no edema. I reviewed her medications and lab results. Internal Medicine: Result - Labs CBC & Chem 7: 02/13/17 07:41 02/13/17 05:08 Labs: Short CBC 02/13/17 Range/Units 07:41 WBC 18.9 H (4.3-11.1) K/mcL Hgb 12.5 (11.5-15.4) g/dL Hct 35.6 (35.3-44.9) % Plt Count 356 (140-400) K/mcL Neutrophils # 13.3 H (1.6-8.9) K/mcL BMP 02/13/17 05:08 Creatinine 0.57 - ABG Interpretation ABG results: PT/INR, D-dimer PT 12.4 Seconds (9.4-12.1) H 02/13/17 07:45 Consult Discharge Plan - Plan Referrals: Ronnie Pond MD [Primary Care Provider] - 1 week
[2017-02-13] MEDS: Nicotine 21 MG PATCH.TD24 TD SCH (14:40)
[2017-02-14 07:10] LABS: Basophils # 0.1 K/mcL (0.0-0.2); Basophils % 0.4 %; Eosinophils # 0.2 K/mcL (0.0-0.6); Eosinophils % 1.4 %; Hematocrit 35.6 % (35.3-44.9); Hemoglobin 11.8 g/dL (11.5-15.4); Immature Granulocytes % 0.4 % (0-4); Lymphocytes # 3.6 K/mcL (0.6-4.6); Lymphocytes % 26.6 %; Mean Corpuscular HGB Conc 33.1 g/dL (31.6-35.5); Mean Corpuscular Hemoglobin 30.4 pg (28.0-33.3); Mean Corpuscular Volume 91.8 fL (83.0-100.0); Mean Platelet Volume 11.9 fL (9.4-12.4); Monocytes # 0.8 K/mcL (0.0-1.3); Monocytes % 5.9 %; Platelet Count 172 K/mcL (140-400); Red Blood Count 3.88 M/mcL (3.82-4.97); Red Cell Distribution Width 14.3 % (11.5-14.5); Segmented Neutrophils % 65.3 %
[2017-02-14 07:58] LABS: BUN/Creatinine Ratio 11 (6-26); Blood Urea Nitrogen 7 mg/dL (7-20); Calcium 9.4 mg/dL (8.6-10.8); Carbon Dioxide 15 mEq/L (19-29); Chloride 96 mEq/L (98-109); Glucose 94 mg/dL (70-99); Osmolality,Calculated 262 (280-300); Potassium 3.8 mEq/L (3.5-4.5); Sodium 127 mEq/L (136-145); eGFR For African Americans > 60 (> 60); eGFR For Non-African Americans > 60 (> 60)
[2017-02-14] MEDS: amLODIPine 5 MG TABLET PO SCH (08:36)
[2017-02-14] MEDS: Aspirin 81 MG TAB.CHEW PO SCH (08:37)
[2017-02-14] MEDS: Nicotine 21 MG PATCH.TD24 TD SCH (15:12)
--- NOTE | 2017-02-14 17:29 | Internal Med Progress Note ---
Date of Encounter: 02/14/17 Time of Encounter: 17:15 - Assessment and plan (1) Altered mental status Current Visit: No Status: Acute Assessment and plan: February 13. Improved. Continue present management. February 14. She remains alert but confused. Continue present regimen Qualifiers: Altered mental status type: unspecified Qualified Code(s): R41.82 - Altered mental status, unspecified (2) Hyponatremia Current Visit: No Status: Acute Assessment and plan: February 13. We will recheck labs in a.m. February 14. Sodium stable at 127. Will not workup or treatment further at this time. (3) Neutrophilic leukocytosis Current Visit: No Status: Acute Assessment and plan: February 13. We will discontinue antibiotics. Etiology of the leukocytosis is not known. February 14. WBC significantly improved to 13.7 with resolution of left shift persisting. We will not workup or treat further. (4) Hypothyroid Current Visit: No Status: Acute Assessment and plan: February 13. TSH was 32.916 on 02/08/2017. Continue Synthroid. Qualifiers: Hypothyroidism type: unspecified Qualified Code(s): E03.9 - Hypothyroidism , unspecified (5) Hypertension Current Visit: No Status: Chronic Assessment and plan: February 13. Blood pressure suboptimally controlled. Will increase lisinopril. February 14. Continue present dose lisinopril and Norvasc Qualifiers: Hypertension type: essential hypertension Qualified Code(s): I10 - Essential (primary) hypertension - Subjective Interval history: February 13. She was hospitalized in acute care February 08- February 12 after presenting with altered mental status. She remained nonverbal until February 11 when she had marked improvement and was able to communicate appropriately. MRI brain showed no infarct. She had leukocytosis of uncertain etiology. She was treated with antibiotics which were continued into swing bed orders. She has no new complaints today. February 14. She has no new complaints. - Constitutional Vitals: Temp Pulse Resp BP Pulse Ox 97.8 F 81 16 158/83 98 02/14/17 07:00 02/14/17 15:36 02/14/17 15:36 02/14/17 15:36 02/14/17 15:36 Exam: She is resting comfortably in bed. She has confusion at times and thinks her mother is still alive and is 81 years old although she knows she herself is 82 years old. Speech is tangential at times. 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 Rapid finger movements are slow bilaterally and symmetric. I reviewed her medications and lab results. I discussed her case with her daughter. Internal Medicine: Result - Labs CBC & Chem 7: 02/14/17 05:20 02/14/17 05:20 Labs: Short CBC 02/14/17 Range/Units 05:20 WBC 13.7 H (4.3-11.1) K/mcL Hgb 11.8 (11.5-15.4) g/dL Hct 35.6 (35.3-44.9) % Plt Count 172 D (140-400) K/mcL Neutrophils # 9.0 H (1.6-8.9) K/mcL BMP 02/14/17 05:20 Sodium 127 L Potassium 3.8 Chloride 96 L Carbon Dioxide 15 L BUN 7 Creatinine 0.61 Glucose 94 Calcium 9.4 - ABG Interpretation ABG results: PT/INR, D-dimer PT 12.4 Seconds (9.4-12.1) H 02/13/17 07:45 Consult Discharge Plan - Plan Referrals: Ronnie Pond MD [Primary Care Provider] - 1 week
[2017-02-15] MEDS: Aspirin 81 MG TAB.CHEW PO SCH (09:52)
[2017-02-15] MEDS: Nicotine 21 MG PATCH.TD24 TD SCH (09:52)
[2017-02-15] MEDS: Lisinopril 20 MG TABLET PO SCH (09:52)
[2017-02-15] MEDS: amLODIPine 5 MG TABLET PO SCH (09:52)
[2017-02-16] MEDS: Lisinopril 20 MG TABLET PO SCH (09:00)
[2017-02-16] MEDS: Nicotine 21 MG PATCH.TD24 TD SCH (09:00)
[2017-02-16] MEDS: Aspirin 81 MG TAB.CHEW PO SCH (09:00)
[2017-02-16] MEDS: amLODIPine 5 MG TABLET PO SCH (09:00)
[2017-02-17] MEDS: Aspirin 81 MG TAB.CHEW PO SCH (08:47)
[2017-02-17] MEDS: Lisinopril 20 MG TABLET PO SCH (08:47)
[2017-02-17] MEDS: amLODIPine 5 MG TABLET PO SCH (08:47)
[2017-02-17] MEDS: Nicotine 21 MG PATCH.TD24 TD SCH (08:47)
[2017-02-17] MEDS: *HR* LORazepam 1 MG TABLET PO PRN (20:20)
[2017-02-18] MEDS: Nicotine 21 MG PATCH.TD24 TD SCH (11:01)
[2017-02-18] MEDS: amLODIPine 5 MG TABLET PO SCH (11:01)
[2017-02-18] MEDS: Lisinopril 20 MG TABLET PO SCH (11:01)
[2017-02-18] MEDS: Aspirin 81 MG TAB.CHEW PO SCH (11:01)
--- NOTE | 2017-02-18 16:43 | Internal Med Progress Note ---
Date of Encounter: 02/18/17 Time of Encounter: 15:55 - Assessment and plan (1) Altered mental status Current Visit: No Status: Acute Assessment and plan: February 13. Improved. Continue present management. February 14. She remains alert but confused. Continue present regimen February 18. Mental status likely near baseline now. Qualifiers: Altered mental status type: unspecified Qualified Code(s): R41.82 - Altered mental status, unspecified (2) Hyponatremia Current Visit: No Status: Acute Assessment and plan: February 13. We will recheck labs in a.m. February 14. Sodium stable at 127. Will not workup or treatment further at this time. February 18. Recheck labs in a.m. (3) Neutrophilic leukocytosis Current Visit: No Status: Acute Assessment and plan: February 13. We will discontinue antibiotics. Etiology of the leukocytosis is not known. February 14. WBC significantly improved to 13.7 with resolution of left shift persisting. We will not workup or treat further. February 18. Recheck labs in a.m. (4) Hypothyroid Current Visit: No Status: Acute Assessment and plan: February 13. TSH was 32.916 on 02/08/2017. Continue Synthroid. Qualifiers: Hypothyroidism type: unspecified Qualified Code(s): E03.9 - Hypothyroidism , unspecified (5) Hypertension Current Visit: No Status: Chronic Assessment and plan: February 13. Blood pressure suboptimally controlled. Will increase lisinopril. February 14. Continue present dose lisinopril and Norvasc February 18. Continue lisinopril and Norvasc. Qualifiers: Hypertension type: essential hypertension Qualified Code(s): I10 - Essential (primary) hypertension - Subjective Interval history: February 13. She was hospitalized in acute care February 08- February 12 after presenting with altered mental status. She remained nonverbal until February 11 when she had marked improvement and was able to communicate appropriately. MRI brain showed no infarct. She had leukocytosis of uncertain etiology. She was treated with antibiotics which were continued into swing bed orders. She has no new complaints today. February 14. She has no new complaints. February 18. She has no new complaints. - Constitutional Vitals: Temp Pulse Resp BP Pulse Ox 98.5 F 78 16 158/81 98 02/18/17 07:01 02/18/17 13:18 02/18/17 13:18 02/18/17 13:18 02/18/17 13:18 Exam: She is sitting in a chair at bedside and appears comfortable. Her affect is bright and cheerful. She knows her age. I reviewed her medications and lab results. Internal Medicine: Result - Labs CBC & Chem 7: 02/14/17 05:20 02/14/17 05:20 - ABG Interpretation ABG results: PT/INR, D-dimer PT 12.4 Seconds (9.4-12.1) H 02/13/17 07:45 - VTE Documentation of Mechanical Device: Graduated compression elastic hosiery Consult Discharge Plan - Plan Referrals: Ronnie Pond MD [Primary Care Provider] - 1 week
[2017-02-18] MEDS ORDERED: Mag Hydrox/Al Hydrox/Simeth 30 ML UDC PO PRN (21:17)
[2017-02-19] MEDS: *HR* LORazepam 1 MG TABLET PO PRN ×2 (05:44→21:29)
[2017-02-19 06:49] LABS: Basophils # 0.1 K/mcL (0.0-0.2); Basophils % 0.3 %; Eosinophils # 0.1 K/mcL (0.0-0.6); Eosinophils % 0.8 %; Hematocrit 32.2 % (35.3-44.9); Hemoglobin 11.3 g/dL (11.5-15.4); Immature Granulocytes % 0.5 % (0-4); Lymphocytes # 5.5 K/mcL (0.6-4.6); Lymphocytes % 35.9 %; Mean Corpuscular HGB Conc 35.1 g/dL (31.6-35.5); Mean Corpuscular Hemoglobin 30.5 pg (28.0-33.3); Mean Corpuscular Volume 86.8 fL (83.0-100.0); Mean Platelet Volume 10.5 fL (9.4-12.4); Monocytes # 0.9 K/mcL (0.0-1.3); Monocytes % 5.6 %; Neutrophils # 8.8 K/mcL (1.6-8.9); Platelet Count 379 K/mcL (140-400); Red Blood Count 3.71 M/mcL (3.82-4.97); Red Cell Distribution Width 13.8 % (11.5-14.5); Segmented Neutrophils % 56.9 %
[2017-02-19 07:06] LABS: Alanine Aminotransferase 15 Units/L (0-55); Albumin 3.7 g/dL (3.5-5.0); Albumin/Globulin Ratio 1.5 (1.1-2.2); Alkaline Phosphatase 123 Units/L (38-126); Aspartate Amino Transferase 14 Units/L (5-34); BUN/Creatinine Ratio 20 (6-26); Bilirubin,Total 0.4 mg/dL (0.2-1.2); Blood Urea Nitrogen 14 mg/dL (7-20); Calcium 8.8 mg/dL (8.6-10.8); Carbon Dioxide 20 mEq/L (19-29); Chloride 96 mEq/L (98-109); Globulin 2.5 g/dL (2.4-3.5); Glucose 107 mg/dL (70-99); Osmolality,Calculated 261 (280-300); Potassium 4.2 mEq/L (3.5-4.5); Sodium 125 mEq/L (136-145); Total Protein 6.2 g/dL (6.0-8.3); eGFR For African Americans > 60 (> 60); eGFR For Non-African Americans > 60 (> 60)
[2017-02-19] MEDS: Nicotine 21 MG PATCH.TD24 TD SCH (08:59)
[2017-02-19] MEDS: amLODIPine 5 MG TABLET PO SCH (09:04)
[2017-02-19] MEDS: Aspirin 81 MG TAB.CHEW PO SCH (09:04)
[2017-02-19] MEDS: Lisinopril 20 MG TABLET PO SCH (09:04)
[2017-02-20] MEDS: Nicotine 21 MG PATCH.TD24 TD SCH (11:35)
[2017-02-20] MEDS: *HR* LORazepam 1 MG TABLET PO PRN (11:35)
[2017-02-20] MEDS: amLODIPine 5 MG TABLET PO SCH (11:35)
[2017-02-20] MEDS: Lisinopril 20 MG TABLET PO SCH (11:35)
[2017-02-20] MEDS: Aspirin 81 MG TAB.CHEW PO SCH (11:35)
[2017-02-21] MEDS: Nicotine 21 MG PATCH.TD24 TD SCH (11:51)
[2017-02-21] MEDS: Lisinopril 20 MG TABLET PO SCH (11:52)
[2017-02-21] MEDS: Aspirin 81 MG TAB.CHEW PO SCH (11:52)
[2017-02-21] MEDS: amLODIPine 5 MG TABLET PO SCH (11:53)
--- NOTE | 2017-02-21 12:38 | Internal Med Progress Note ---
Date of Encounter: 02/21/17 Time of Encounter: 12:30 - Assessment and plan (1) Altered mental status Current Visit: No Status: Acute Assessment and plan: February 13. Improved. Continue present management. February 14. She remains alert but confused. Continue present regimen February 18. Mental status likely near baseline now. February 21. Remains at baseline. Anticipate discharge home tomorrow. Qualifiers: Altered mental status type: unspecified Qualified Code(s): R41.82 - Altered mental status, unspecified (2) Hyponatremia Current Visit: No Status: Acute Assessment and plan: February 13. We will recheck labs in a.m. February 14. Sodium stable at 127. Will not workup or treatment further at this time. February 18. Recheck labs in a.m. February 21. Recheck labs in a.m. (3) Neutrophilic leukocytosis Current Visit: No Status: Acute Assessment and plan: February 13. We will discontinue antibiotics. Etiology of the leukocytosis is not known. February 14. WBC significantly improved to 13.7 with resolution of left shift persisting. We will not workup or treat further. February 18. Recheck labs in a.m. February 21. Recheck labs in a.m. (4) Hypothyroid Current Visit: No Status: Acute Assessment and plan: February 13. TSH was 32.916 on 02/08/2017. Continue Synthroid. Qualifiers: Hypothyroidism type: unspecified Qualified Code(s): E03.9 - Hypothyroidism , unspecified (5) Hypertension Current Visit: No Status: Chronic Assessment and plan: February 13. Blood pressure suboptimally controlled. Will increase lisinopril. February 14. Continue present dose lisinopril and Norvasc February 18. Continue lisinopril and Norvasc. Qualifiers: Hypertension type: essential hypertension Qualified Code(s): I10 - Essential (primary) hypertension - Subjective Interval history: February 13. She was hospitalized in acute care February 08- February 12 after presenting with altered mental status. She remained nonverbal until February 11 when she had marked improvement and was able to communicate appropriately. MRI brain showed no infarct. She had leukocytosis of uncertain etiology. She was treated with antibiotics which were continued into swing bed orders. She has no new complaints today. February 14. She has no new complaints. February 18. She has no new complaints. February 21. She has no new complaints. She states she wants to go home. - Constitutional Vitals: Temp Pulse Resp BP Pulse Ox 98.7 F 78 16 118/66 99 02/21/17 07:04 02/21/17 07:04 02/21/17 07:04 02/21/17 07:04 02/21/17 07:04 Exam: She is resting comfortably in bed. Her affect is bright and cheerful. She is very appropriate in conversation. I reviewed her medications and lab results. Internal Medicine: Result - Labs CBC & Chem 7: 02/19/17 06:41 02/19/17 06:41 - ABG Interpretation ABG results: PT/INR, D-dimer PT 12.4 Seconds (9.4-12.1) H 02/13/17 07:45 - VTE Documentation of Mechanical Device: Graduated compression elastic hosiery Consult Discharge Plan - Plan Referrals: Ronnie Pond MD [Primary Care Provider] - 1 week
[2017-02-21] MEDS ORDERED: Acetaminophen 325 MG TABLET PO PRN (14:07)
[2017-02-21] MEDS: traMADol 50 MG TABLET PO PRN (17:16)
[2017-02-22] MEDS: *HR* LORazepam 1 MG TABLET PO PRN (00:04)
[2017-02-22 08:16] VITALS: BP 125/73
[2017-02-22] MEDS: Aspirin 81 MG TAB.CHEW PO SCH (08:18)
[2017-02-22] MEDS: Nicotine 21 MG PATCH.TD24 TD SCH (08:19)
[2017-02-22] MEDS: Lisinopril 20 MG TABLET PO SCH (08:20)
[2017-02-22] MEDS: amLODIPine 5 MG TABLET PO SCH (08:20)
[2017-02-22] MEDS: traMADol 50 MG TABLET PO PRN (08:21)
--- NOTE | 2017-02-22 10:18 | Discharge Summary ---
Date of Encounter: 02/22/17 Time of Encounter: 10:10 - Discharge Diagnosis (1) Altered mental status Priority: Primary Status: Resolved Qualifiers: Altered mental status type: unspecified Qualified Code(s): R41.82 - Altered mental status, unspecified (2) Hyponatremia Priority: Secondary Status: Acute (3) Neutrophilic leukocytosis Priority: Secondary Status: Acute (4) Hypothyroid Priority: Secondary Status: Chronic Qualifiers: Hypothyroidism type: unspecified Qualified Code(s): E03.9 - Hypothyroidism , unspecified (5) Hypertension Priority: Secondary Status: Chronic Qualifiers: Hypertension type: essential hypertension Qualified Code(s): I10 - Essential (primary) hypertension - Discharge Medications Prescriptions: Levothyroxine [Synthroid] 150 mcg PO 0630 #30 tablet Lisinopril [Zestril] 20 mg PO DAILY #30 tablet Home Medications: Amlodipine [Norvasc] 5 mg PO DAILY 08/16/15 [History] Docusate [Colace] 100 mg PO DAILY PRN 02/08/17 [History] Aspirin 81 mg PO DAILY tab.chew 02/12/17 [Rx] Levothyroxine [Synthroid] 150 mcg PO 0630 #30 tablet 02/22/17 [Rx] Lisinopril [Zestril] 20 mg PO DAILY #30 tablet 02/22/17 [Rx] Nicotine Patch [Nicoderm] 21 mg TD DAILY patch.td24 02/22/17 [Rx] Allergies/Adverse Reactions: Allergies Iodinated Contrast Media - Oral and Allergy (Verified 02/08/17 12:33) See Comments Shock Date of admission: 02/12/17 16:58 Primary care physician: Ronnie Pond MD Consults: 02/12/17 17:37 Consult to Occupational Therapy [CONS] Routine Comment: Evaluate, develop and implement POC Reason for Consult: Evaluate, develop and implement POC Consult to Physical Therapy [CONS] Routine Comment: Evaluate, develop and implement POC Reason for Consult: Evaluate, develop and implement POC 02/13/17 19:11 Consult to Speech Therapy [CONS] Routine Comment: Evaluate, develop and implement POC Reason for Consult: reevaluate of swallow after barium swallow and increase level of conciousness Call Completed: No - Patient Status Disposition: Home Health Service Functional capacity at discharge: uses cane/walker Overall status at discharge: patient is progressing back to baseline - Discharge Instructions Follow Up With: Ronnie Pond MD [Primary Care Provider] - 1 week - Diet and Activity Activity: as per physical therapy Diet: advance to your usual diet Hospital course: Ms. Mariano is a 82 year old female who was hospitalized in acute care February 08- February 12 after presenting with altered mental status. She remained nonverbal until February 11 when she had marked improvement and was able to communicate appropriately. MRI brain showed no infarct. She had leukocytosis of uncertain etiology. She was treated with antibiotics which were continued into swing bed orders. She continued with ongoing therapy in swing bed and progressed satisfactorily. Her mental status remained alert and she was generally appropriate in conversation. She had persistent hyponatremia but I did not feel further workup or treatment was required at this time. She will be discharged home and follow with her PCP within one week. She will be living with her daughter in [place] upon discharge. TSH was 32.916 on 02/08/2017. Her Synthroid dose was increased to 150 g daily and this will be continued at discharge. Adjustments were made in her hypertension medications and she will continue these adjusted doses upon discharge. - Time Spent with Patient Total time spent providing and/or coordinating discharge services: - Constitutional Vitals: Temp Pulse Resp BP Pulse Ox 98.6 F 86 17 125/73 99 02/22/17 06:00 02/22/17 08:14 02/22/17 06:00 02/22/17 08:14 02/22/17 08:14 - VTE Documentation of Mechanical Device: Graduated compression elastic hosiery
--- NOTE | 2017-02-22 10:29 | Physician Discharge Referral ---
Home Health/Hosp Referral Info Transfer to: Home Health Attending Provider: Stanley Provider in Charge Post Discharge: PCP (Ronnie Pond M.D.) - Diagnosis (1) Altered mental status Priority: Primary Status: Resolved (2) Hyponatremia Priority: Secondary Status: Acute (3) Neutrophilic leukocytosis Priority: Secondary Status: Acute (4) Hypothyroid Priority: Secondary Status: Chronic (5) Hypertension Priority: Secondary Status: Chronic - Respiratory Orders Smoking Cessation: Smoking cessation has been advised. For more information, call the [place] Tobacco Quit Line at 7-691-KVCD-NOW. - Diet/Nutrition Diet/Nutrition Orders: Regular - Activity Activity Orders: Walker - Services Needed Following services are medically necessary services: Nursing, Home Health Aide, Physical Therapy, Occupational Therapy - Transfer Medications Prescriptions: Levothyroxine [Synthroid] 150 mcg PO 0630 #30 tablet Lisinopril [Zestril] 20 mg PO DAILY #30 tablet Home Medications: Amlodipine [Norvasc] 5 mg PO DAILY 08/16/15 [History] Docusate [Colace] 100 mg PO DAILY PRN 02/08/17 [History] Aspirin 81 mg PO DAILY tab.chew 02/12/17 [Rx] Levothyroxine [Synthroid] 150 mcg PO 0630 #30 tablet 02/22/17 [Rx] Lisinopril [Zestril] 20 mg PO DAILY #30 tablet 02/22/17 [Rx] Nicotine Patch [Nicoderm] 21 mg TD DAILY patch.td24 02/22/17 [Rx] Allergies/Adverse Reactions: Allergies Iodinated Contrast Media - Oral and Allergy (Verified 02/08/17 12:33) See Comments Shock Certification: Further, I certify that my clinical findings support that this patient is homebound (i.e. absences from home require considerable and taxing effort and are for medical reasons or baptism services or infrequently or short duration when for other reasons) because: Homebound Reason: Leaving home requires considerable and taxing effort due to condition (Confusion and impaired mobility) Attestation: My signature below is to certify that this patient is under my care and that I, or nurse practitioner, or a physician's psychological assistant working with me, has a face-to -face encounter with this patient.
== END 2017-02-22 14:30 | disposition home health service (06) | DRG 945 ==
LOC: INPPIK 16:58
PROVIDERS: ADMIT Internal Medicine; ATTEND Internal Medicine